=== PATIENT | female | born 1960 | race Caucasian/White ===

== ENCOUNTER 2020-01-31 07:13 | Day surgery (SDC) | payer OTHER ==
[~2020-01-31] VITALS: Ht 162.6 cm; Wt 81.3 kg
[~2020-01-31 07:13] MED LIST: CETI10 PO; FEXPSEER; GENERESS FE CH1 EACH PO; GENERESS FE PO
[2020-01-31] MEDS ORDERED: Voltaren100 GM (07:26)
[2020-01-31] MEDS ORDERED: ALLEGRA ALLERG180 MG (07:27)
== END 2020-01-31 09:10 | disposition home or self-care (01) ==
LOC: ORSCSDS 07:13
PROVIDERS: Surgery
PROC: 0DJD8ZZ Inspection of Lower Intestinal Tract, Via Natural or Artificial Opening Endoscopic (ICD-10-PCS; principal; 2020-01-31 08:30)
DX: Z12.11 Encounter for screening for malignant neoplasm of colon (principal); Z85.038 Personal history of other malignant neoplasm of large intestine; K64.8 Other hemorrhoids
CPT/HCPCS: J0461; J2405; J2704; J7120

== ENCOUNTER 2023-07-28 07:11 | Day surgery (SDC) | payer BC ==
[~2023-07-28] VITALS: Ht 162.6 cm; Wt 78.5 kg
[~2023-07-28 07:11] MED LIST changes: +ALLEGRA ALLERG180 MG; +IBUP800 PO; +Voltaren100 GM
[2023-07-28] MEDS ORDERED: MERIBIN5 MG (07:25)
[2023-07-28] MEDS ORDERED: Vitamin C100 M1 (07:25)
[2023-07-28 09:23] VITALS: BP 132/76
== END 2023-07-28 09:10 | disposition home or self-care (01) ==
LOC: ORSCSDS 07:11
PROVIDERS: Surgery
PROC: 0DJD8ZZ Inspection of Lower Intestinal Tract, Via Natural or Artificial Opening Endoscopic (ICD-10-PCS; principal; 2023-07-28 08:30)
DX: Z12.11 Encounter for screening for malignant neoplasm of colon (principal); Z85.030 Personal history of malignant carcinoid tumor of large intestine
CPT/HCPCS: J2704; J7120